=== PATIENT | female | born 1985 | race American Indian/Alaskan Native ===

== ENCOUNTER 2018-12-27 17:30 | Emergency (ER) | payer SELFPAY ==
--- NOTE | 2018-12-27 18:50 | Emergency Department Report ---
Blank Doc - Documentation Documentation: 33-year-old female that presents dizziness and chronic lower back pain with ra diation to legs. Denies any trauma. This initial assessment/diagnostic orders/clinical plan/treatment(s) is/are subject to change based on patient's health status, clinical progression and re-assessment by fellow clinical providers in the ED. Further treatment and workup at subsequent clinical providers discretion. Patient/guardians urged not to elope from the ED as their condition may be serious if not clinically assessed and managed. Initial orders include: 1- Patient sent to [facility] for further evaluation and treatment 2- labs 3- UA
[2018-12-27 18:53] VITALS: BP 142/91
[2018-12-27 19:19] LABS: Basophils # (Auto) 0.1 K/mm3 (0.0-0.1); Basophils % (Auto) 0.8 % (0.0-1.8); Eosinophils # (Auto) 0.1 K/mm3 (0.0-0.4); Eosinophils % (Auto) 1.1 % (0.0-4.3); Lymphocytes # (Auto) 3.3 K/mm3 (1.2-5.4); Lymphocytes % (Auto) 26.9 % (13.4-35.0); Mean Corpuscular HGB Conc 30 % (30-34); Mean Corpuscular Volume 72 fl (79-97); Monocytes # (Auto) 0.7 K/mm3 (0.0-0.8); Monocytes % (Auto) 5.8 % (0.0-7.3); Platelet Count 423 K/mm3 (140-440); Red Blood Count 5.23 M/mm3 (3.65-5.03); Red Cell Distribution Width 17.2 % (13.2-15.2)
[2018-12-27 19:23] LABS: Hematocrit 37.7 % (30.3-42.9); Hemoglobin 11.5 gm/dl (10.1-14.3)
[2018-12-27 19:34] LABS: BUN/Creatinine Ratio 14; Blood Urea Nitrogen 7 mg/dL (7-17); Calcium 9.4 mg/dL (8.4-10.2); Hemolysis Index 3
[2018-12-27] MEDS ORDERED: KETOROLAC 30 MG/1 ML INJ IM ONE (21:12)
--- NOTE | 2018-12-27 21:58 | Emergency Department Report ---
ED Back Pain/Injury HPI - General Chief Complaint: Back Pain/Injury Stated Complaint: LOWER BACK PAIN/DIZZY/LEG PAIN Time Seen by Provider: 12/27/18 18:48 Source: patient Limitations: No Limitations - History of Present Illness Initial Comments: Ms. Hurd is s 33 y/o aaf with hx of htn, DMII, obesity , who presents for left low back pain radiating to bilat legs x 3 days. pt denies fall injury or trauma. Thre is no fever or chills, no n/v no numbness or tingling , no loss of bowel or bladder function, pain is described as 4/10 aching ,burning. pain is relieved by nothing, pain is exacerbated by bending reaching . MD Complaint: back pain Onset/Timin -: days(s) Similar Symptoms Previously: Yes Place: home Radiation: left leg, right leg Severity: moderate Severity scale (0 -10): 5 Quality: aching Consistency: constant Improves With: none Worsens With: none Context: while lifting, turning/twisting, bending Associated Symptoms: denies: numbness, difficulty urinating, incontinence, fever/chills - Related Data Previous Rx's Medication Instructions Recorded Last Taken Type Cyclobenzaprine [Flexeril] 10 mg PO TID PRN #30 tablet 12/27/18 Unknown Rx Menthol/Camphor [[place] 1 applicatio TP BID PRN 7 Days #1 12/27/18 Unknown Rx Ointment] tube Naproxen 500 mg PO BID PRN #30 tablet 12/27/[address] [facility]/M-Cryst 100 mg PO BID 7 Days #14 capsule 12/27/18 Unknown Rx [Macrobid CAP] Allergies Allergy/AdvReac Type Severity Reaction Status Date / Time lisinopril Allergy Swelling Verified 12/27/18 18:49 ED Review of Systems ROS: Stated complaint: LOWER BACK PAIN/DIZZY/LEG PAIN Other details as noted in HPI Constitutional: denies: chills, fever Eyes: denies: eye pain, eye discharge, vision change ENT: denies: ear pain, throat pain Respiratory: denies: cough, shortness of breath, wheezing Cardiovascular: denies: chest pain, palpitations Endocrine: no symptoms reported Gastrointestinal: denies: abdominal pain, nausea, diarrhea Genitourinary: denies: urgency, dysuria, discharge Musculoskeletal: back pain, arthralgia, myalgia Skin: denies: rash, lesions Neurological: denies: headache, weakness, paresthesias Psychiatric: denies: anxiety, depression Hematological/Lymphatic: denies: easy bleeding, easy bruising ED Past Medical Hx - Past Medical History Hx Hypertension: Yes Hx Diabetes: Yes - Surgical History Additional Surgical History: uterus repair - Social History Smoking Status: Never Smoker Substance Use Type: None - Medications Home Medications: Home Medications Medication Instructions Recorded Confirmed Last Taken Type Cyclobenzaprine [Flexeril] 10 mg PO TID PRN #30 tablet 12/27/18 Unknown Rx Menthol/Camphor [[place] 1 applicatio TP BID PRN 7 Days #1 12/27/18 Unknown Rx Ointment] tube Naproxen 500 mg PO BID PRN #30 tablet 12/27/[address] [facility]/M-Cryst 100 mg PO BID 7 Days #14 capsule 12/27/18 Unknown Rx [Macrobid CAP] ED Physical Exam - General Limitations: No Limitations General appearance: alert, in no apparent distress - Head Head exam: Present: atraumatic, normocephalic - Eye Eye exam: Present: normal appearance, EOMI Pupils: Present: normal accommodation - ENT ENT exam: Present: mucous membranes moist - Neck Neck exam: Present: normal inspection, meningismus, full ROM. Absent: tenderness, lymphadenopathy, thyromegaly - Respiratory Respiratory exam: Present: normal lung sounds bilaterally. Absent: respiratory distress, wheezes, stridor, chest wall tenderness - Cardiovascular Cardiovascular Exam: Present: regular rate, normal rhythm, irregular rhythm, normal heart sounds. Absent: systolic murmur, diastolic murmur, rubs, gallop - GI/Abdominal GI/Abdominal exam: Present: soft, normal bowel sounds. Absent: distended, tenderness, guarding, bruit, hernia - Rectal Rectal exam: Present: deferred - External exam: Present: bleeding - Extremities Exam Extremities exam: Present: normal inspection, full ROM, normal capillary refill, joint swelling. Absent: tenderness - Back Exam Back exam: Present: normal inspection, full ROM, tenderness (LL back muscle tenderness to deep palpation no posterior vertebral point tendernes.), muscle spasm, paraspinal tenderness (mild paraspinus muscle tenderness to deep palpation.). Absent: CVA tenderness (R), CVA tenderness (L), vertebral tenderness, rash noted - Expanded Back Exam Expanded Back exam: Absent: saddle anesthesia Back exam: Negative Straight Leg Raising: Left, Right - Neurological Exam Neurological exam: Present: alert, oriented X3, CN II-XII intact, normal gait, reflexes normal. Absent: motor sensory deficit - Expanded Neurological Exam Expanded Patient oriented to: Present: person, place, time Speech: Present: fluid speech Cranial nerves: EOM's Intact: Normal, Gag Reflex: Normal, Tongue Deviation: Normal, Nystagmus: Normal, Facial Sensation: Normal Upper motor neuron: [place] Neglect: Normal, Pronator Drift: Normal Motor strength exam: RUE: 5, LUE: 5, RLE: 5, LLE: 5 Best Eye Response ([place]): (4) open spontaneously Best Motor Response ([place]): (6) obeys commands Best Verbal Response ([place]): (5) oriented [place] Total: 15 ED Course Vital Signs 12/27/18 18:49 Temperature 98.1 F Pulse Rate 97 H Respiratory 18 Rate Blood Pressure 142/91 O2 Sat by Pulse 95 Oximetry ED Medical Decision Making - Lab Data Result diagrams: 12/27/18 18:59 12/27/18 18:59 Labs 12/27/18 12/27/18 12/27/18 18:59 18:59 18:59 WBC 12.3 H RBC 5.23 H Hgb 11.5 Hct 37.7 MCV 72 L MCH 22 L MCHC 30 RDW 17.2 H Plt Count 423 Lymph % (Auto) 26.9 [place] % (Auto) 5.8 Eos % (Auto) 1.1 Baso % (Auto) 0.8 Lymph # 3.3 [facility] [place] # 0.7 Eos # 0.1 Baso # 0.1 Seg Neutrophils % 65.4 Seg Neutrophils # 8.0 H Sodium 138 Potassium 4.3 Chloride 100.4 Carbon Dioxide 27 Anion Gap 15 BUN 7 Creatinine 0.5 L Estimated GFR > 60 BUN/Creatinine Ratio 14 Glucose 195 H POC Glucose Calcium 9.4 HCG, Qual Negative Urine Color Urine Turbidity Urine pH Ur Specific [place] Urine Protein Urine Glucose (UA) Urine Ketones Urine Blood Urine Nitrite Urine Bilirubin Urine Urobilinogen Ur Leukocyte Esterase Urine WBC (Auto) Urine RBC (Auto) U Epithel Cells (Auto) Urine Bacteria (Auto) Urine Mucus 12/27/18 12/27/18 19:06 Unknown WBC RBC Hgb Hct MCV MCH MCHC RDW Plt Count Lymph % (Auto) [facility] % (Auto) Eos % (Auto) Baso % (Auto) Lymph # [facility] # Eos # Baso # Seg Neutrophils % Seg Neutrophils # Sodium Potassium Chloride Carbon Dioxide Anion Gap BUN Creatinine Estimated GFR BUN/Creatinine Ratio Glucose POC Glucose 178 H Calcium HCG, Qual Urine Color Yellow Urine Turbidity Slightly-cloudy Urine pH 5.0 Ur Specific [place] 1.017 Urine Protein <15 mg/dl Urine Glucose (UA) 50 Urine Ketones Neg Urine Blood Neg Urine Nitrite Neg Urine Bilirubin Neg Urine Urobilinogen < 2.0 Ur Leukocyte Esterase Tr Urine WBC (Auto) 1.0 Urine RBC (Auto) 1.0 U Epithel Cells (Auto) 8.0 Urine Bacteria (Auto) 1+ Urine Mucus Few - Medical Decision Making This is a low back strain, ua: tr lue, wbc, bacteria, no posterior vertebral point tenderness no swelling no numbness or tingling , no loss or decrease in bowel or bladder function, pt is ambualtory with steady gait at this time. 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 pt verbalized agreement and understanding of discharge plan. Critical care attestation.: If time is entered above; I have spent that time in minutes in the direct care of this critically ill patient, excluding procedure time. ED Disposition Clinical Impression: Low back strain Qualifiers: Encounter type: initial encounter Qualified Code(s): S39.012A - Strain of muscle, fascia and tendon of lower back, initial encounter Disposition: TO HOME OR SELFCARE Is pt being admited?: No Does the pt Need Aspirin: No Condition: Stable Instructions: Muscle Strain (ED), Low Back Strain (ED), Core Strengthening Exercises (GEN) Prescriptions: Cyclobenzaprine [Flexeril] 10 mg PO TID PRN #30 tablet PRN Reason: Muscle Spasm Nitrofurantoin [place]/M-Cryst [Macrobid CAP] 100 mg PO BID 7 Days #14 capsule Naproxen 500 mg PO BID PRN #30 tablet PRN Reason: pain Menthol/Camphor [[place] Ointment] 1 applicatio TP BID PRN 7 Days #1 tube PRN Reason: pain [facility] [Primary Care Provider[facility] - 3-5 Days Forms: Work/School Release Form(ED) Time of Disposition: 22:44
[2018-12-27 22:08] LABS: Bacteria,Urine 1+ /HPF (Negative); Bilirubin,Urine NEG (Negative); Blood,Urine NEG (Negative); Color,Urine Yellow (Yellow); Mucus,Urine FEW /HPF; Protein,Urine <15 mg/dL mg/dL (Negative); Urobilinogen,Urine < 2.0 mg/dL (<2.0)
== END 2018-12-27 23:00 | disposition home or self-care (01) ==
LOC: ED 17:30
DX: S39.012A Strain of muscle, fascia and tendon of lower back, initial encounter (principal); I10 Essential (primary) hypertension; Z88.8 Allergy status to other drugs, medicaments and biological substances; E11.9 Type 2 diabetes mellitus without complications; X50.9XXA Other and unspecified overexertion or strenuous movements or postures, initial encounter; Y93.89 Activity, other specified; Y92.89 Other specified places as the place of occurrence of the external cause; Y99.8 Other external cause status
CPT/HCPCS: 36415; 80048; 81001; 82962; 84703; 85025; 96372; 99283; J1885

== ENCOUNTER 2019-06-09 21:13 | Emergency (ER) | payer MEDICAID ==
[2019-06-09] MEDS ORDERED: SODIUM CHLORIDE 0.9% 1000 ML 1,000 ML IV ONE (21:59)
[2019-06-09] MEDS ORDERED: ONDANSETRON 4 MG/2 ML INJ IV ONE (21:59)
[2019-06-09] MEDS ORDERED: MORPHINE 4 MG/1 ML INJ IV ONE (21:59)
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
[2019-06-09 22:19] LABS: Basophils # (Auto) 0.1 K/mm3 (0.0-0.1); Basophils % (Auto) 0.6 % (0.0-1.8); Eosinophils # (Auto) 0.1 K/mm3 (0.0-0.4); Eosinophils % (Auto) 0.7 % (0.0-4.3); Hematocrit 39.7 % (30.3-42.9); Hemoglobin 12.4 gm/dl (10.1-14.3); Lymphocytes # (Auto) 3.3 K/mm3 (1.2-5.4); Lymphocytes % (Auto) 21.2 % (13.4-35.0); Mean Corpuscular HGB Conc 31 % (30-34); Mean Corpuscular Volume 75 fl (79-97); Monocytes # (Auto) 0.9 K/mm3 (0.0-0.8); Monocytes % (Auto) 5.5 % (0.0-7.3); Platelet Count 389 K/mm3 (140-440); Red Blood Count 5.32 M/mm3 (3.65-5.03); Red Cell Distribution Width 16.7 % (13.2-15.2)
[2019-06-09 22:39] LABS: BUN/Creatinine Ratio 20; Blood Urea Nitrogen 8 mg/dL (7-17); Calcium 9.2 mg/dL (8.4-10.2); Hemolysis Index 147
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
[2019-06-10] MEDS ORDERED: KETOROLAC 30 MG/1 ML INJ IV ONE (00:39)
[2019-06-10] MEDS ORDERED: KETOROLAC 30 MG/1 ML INJ ONE (00:41)
[2019-06-10 01:13] VITALS: BP 126/76
== END 2019-06-10 01:16 | disposition home or self-care (01) ==
LOC: ED 21:13
DX: S13.4XXA Sprain of ligaments of cervical spine, initial encounter (principal); S86.911A Strain of unspecified muscle(s) and tendon(s) at lower leg level, right leg, initial encounter; S39.012A Strain of muscle, fascia and tendon of lower back, initial encounter; S20.219A Contusion of unspecified front wall of thorax, initial encounter; S30.1XXA Contusion of abdominal wall, initial encounter; E66.9 Obesity, unspecified; E11.9 Type 2 diabetes mellitus without complications; I10 Essential (primary) hypertension; Z88.8 Allergy status to other drugs, medicaments and biological substances; Z79.899 Other long term (current) drug therapy; Z68.44 Body mass index [BMI] 60.0-69.9, adult; Z98.890 Other specified postprocedural states; V49.49XA Driver injured in collision with other motor vehicles in traffic accident, initial encounter; Y92.410 Unspecified street and highway as the place of occurrence of the external cause; Y93.89 Activity, other specified; Y99.8 Other external cause status
CPT/HCPCS: 36415; 71260; 72100; 72125; 73562; 74177; 80048; 84703; 85025; 96374; 96375; 99285; J1885; J2270; J2405; J7030; Q9967

== ENCOUNTER 2020-10-15 08:56 | Emergency (ER) | payer MEDICAID ==
[2020-10-15 10:06] VITALS: BP 139/96
--- NOTE | 2020-10-15 12:04 | Emergency Department Report ---
ED ENT HPI - General Chief complaint: Dental/Oral Stated complaint: MOUTH, EAR, HEAD PAIN Time Seen by Provider: 10/15/20 11:57 Source: patient Mode of arrival: Ambulatory Limitations: No Limitations - History of Present Illness Initial comments: Patient is a 35-year-old female presents emergency room with complaints of left lower dental pain that began 6 days ago. She states that she saw dentist approximately a year ago and had a tooth extraction at that time. She denies any fever, nausea, vomiting, diarrhea, facial swelling, difficulty swallowing. Past medical history of hypertension, diabetes, gastric sleeve, uses 2 L of home oxygen. She has an allergy to lisinopril. - Related Data Previous Rx's Medication Instructions Recorded Last Taken Type Cyclobenzaprine [Flexeril] 10 mg PO TID PRN #30 tablet 12/27/18 Unknown Rx Menthol/Camphor [Ingomar [place] 1 applicatio TP BID PRN 7 Days #1 12/27/18 Unknown Rx Ointment] tube Naproxen 500 mg PO BID PRN #30 tablet 12/27/18 Unknown Rx Nitrofurantoin Dickens/M-Cryst 100 mg PO BID 7 Days #14 capsule 12/27/18 Unknown Rx [Macrobid CAP] Cyclobenzaprine [Flexeril] 10 mg PO QHS PRN #10 tablet 06/10/19 Unknown Rx Naproxen 500 mg PO Q12H PRN #12 tablet 06/10/19 Unknown Rx Acetaminophen [Tylenol] 650 mg PO Q8HR PRN #30 capsule 10/15/20 Unknown Rx Chlorhexidine Mouthwash [Peridex] 15 ml MM BID #1 bottle 10/15/20 Unknown Rx Penicillin Vk [Veetids TAB] 500 mg PO QID 7 Days #56 tablet 10/15/20 Unknown Rx Allergies Allergy/AdvReac Type Severity Reaction Status Date / Time lisinopril Allergy Swelling Verified 10/15/20 10:07 ED Dental HPI - General Chief complaint: Dental/Oral Stated complaint: MOUTH, EAR, HEAD PAIN Time Seen by Provider: 10/15/20 11:57 Source: patient Mode of arrival: Ambulatory Limitations: No Limitations - Related Data Previous Rx's Medication Instructions Recorded Last Taken Type Cyclobenzaprine [Flexeril] 10 mg PO TID PRN #30 tablet 12/27/18 Unknown Rx Menthol/Camphor [Ingomar [place] 1 applicatio TP BID PRN 7 Days #1 12/27/18 Unknown Rx Ointment] tube Naproxen 500 mg PO BID PRN #30 tablet 12/27/18 Unknown Rx Nitrofurantoin Dickens/M-Cryst 100 mg PO BID 7 Days #14 capsule 12/27/18 Unknown Rx [Macrobid CAP] Cyclobenzaprine [Flexeril] 10 mg PO QHS PRN #10 tablet 06/10/19 Unknown Rx Naproxen 500 mg PO Q12H PRN #12 tablet 06/10/19 Unknown Rx Acetaminophen [Tylenol] 650 mg PO Q8HR PRN #30 capsule 10/15/20 Unknown Rx Chlorhexidine Mouthwash [Peridex] 15 ml MM BID #1 bottle 10/15/20 Unknown Rx Penicillin Vk [Veetids TAB] 500 mg PO QID 7 Days #56 tablet 10/15/20 Unknown Rx Allergies Allergy/AdvReac Type Severity Reaction Status Date / Time lisinopril Allergy Swelling Verified 10/15/20 10:07 ED Review of Systems ROS: Stated complaint: MOUTH, EAR, HEAD PAIN Other details as noted in HPI Comment: All other systems reviewed and negative ED Past Medical Hx - Past Medical History Hx Hypertension: Yes Hx Diabetes: Yes Additional medical history: morbid obesity - Surgical History Additional Surgical History: uterus repair GASTRIC SLEEVE JUNE 10 - Social History Smoking Status: Never Smoker Substance Use Type: None - Medications Home Medications: Home Medications Medication Instructions Recorded Confirmed Last Taken Type Cyclobenzaprine [Flexeril] 10 mg PO TID PRN #30 tablet 12/27/18 Unknown Rx Menthol/Camphor [Ingomar [place] 1 applicatio TP BID PRN 7 Days #1 12/27/18 Unknown Rx Ointment] tube Naproxen 500 mg PO BID PRN #30 tablet 12/27/18 Unknown Rx Nitrofurantoin Dickens/M-Cryst 100 mg PO BID 7 Days #14 capsule 12/27/18 Unknown Rx [Macrobid CAP] Cyclobenzaprine [Flexeril] 10 mg PO QHS PRN #10 tablet 06/10/19 Unknown Rx Naproxen 500 mg PO Q12H PRN #12 tablet 06/10/19 Unknown Rx Acetaminophen [Tylenol] 650 mg PO Q8HR PRN #30 capsule 10/15/20 Unknown Rx Chlorhexidine Mouthwash [Peridex] 15 ml MM BID #1 bottle 10/15/20 Unknown Rx Penicillin Vk [Veetids TAB] 500 mg PO QID 7 Days #56 tablet 10/15/20 Unknown Rx ED Physical Exam - General Limitations: No Limitations General appearance: alert, in no apparent distress - Head Head exam: Present: atraumatic, normocephalic - Eye Eye exam: Present: normal appearance - ENT ENT exam: Present: mucous membranes moist, other (there is a cracked tooth with a small hole present to the left lower tooth, no induration of the gumline, no facial edema, uvula is midline, no uvular edema or deviation, no trismus, no tongue elevation, no muffled voice, no submandibular edema ) - Respiratory Respiratory exam: Absent: respiratory distress, accessory muscle use - Neurological Exam Neurological exam: Present: alert, oriented X3 - Psychiatric Psychiatric exam: Present: normal affect, normal mood - Skin Skin exam: Present: warm, dry, intact ED Course Vital Signs 10/15/20 10:02 Temperature 98.5 F Pulse Rate 93 H Respiratory 20 Rate Blood Pressure 139/96 O2 Sat by Pulse 100 Oximetry ED Medical Decision Making - Medical Decision Making Patient is a 35-year-old female presents emergency room with complaints of left lower dental pain that began 6 days ago. She states that she saw dentist approximately a year ago and had a tooth extraction at that time. She denies any fever, nausea, vomiting, diarrhea, facial swelling, difficulty swallowing. Past medical history of hypertension, diabetes, gastric sleeve, uses 2 L of home oxygen. She has an allergy to lisinopril. Vitals are stable. On exam:there is a cracked tooth with a small hole present to the left lower tooth, no induration of the gumline, no facial edema, uvula is midline, no uvular edema or deviation, no trismus, no tongue elevation, no muffled voice, no submandibular edema. Examination appears consistent with dental carry, no signs of dental abscess, facial cellulitis, facial abscess or Rojelio's at this time. Patient given prescription for medications. Discussed the importance of outpatient dental follow-up. Advised patient Please take medication as prescribed. Please follow-up with a dentist. Return to emergency room for any new or worsening symptoms. Critical care attestation.: If time is entered above; I have spent that time in minutes in the direct care of this critically ill patient, excluding procedure time. ED Disposition Clinical Impression: Cracked tooth, Dental caries Disposition: HOME / SELF CARE / HOMELESS Is pt being admited?: No Does the pt Need Aspirin: No Condition: Stable Additional Instructions: Please take medication as prescribed. Please follow-up with a dentist. Return to emergency room for any new or worsening symptoms. Prescriptions: Chlorhexidine Mouthwash [Peridex] 15 ml MM BID #1 bottle Acetaminophen [Tylenol] 650 mg PO Q8HR PRN #30 capsule PRN Reason: pain Penicillin Vk [Veetids TAB] 500 mg PO QID 7 Days #56 tablet Referrals: [facility] [Outside] - 3-5 Days [facility] [Outside] - 3-5 Days Time of Disposition: 12:03 Print Language: CROATIAN
== END 2020-10-15 12:33 | disposition home or self-care (01) ==
LOC: ED 08:56
DX: K03.81 Cracked tooth (principal); K02.9 Dental caries, unspecified; E11.8 Type 2 diabetes mellitus with unspecified complications; I10 Essential (primary) hypertension; Z88.8 Allergy status to other drugs, medicaments and biological substances
CPT/HCPCS: 99281

== ENCOUNTER 2020-12-17 15:24 | Emergency (ER) | payer MEDICAID ==
--- NOTE | 2020-12-17 15:39 | Event Note ---
ED Screening Note ED Screening Note: 35 yo morbidly obese female comes in with l calf pain no hx dvt denies sob or cp denies med hx denies home meds sedentary/ obese lle swollen on exam no trauma dp plus 2 HR 97 This initial assessment/diagnostic orders/clinical plan/treatment(s) is/are subject to change based on patients health status, clinical progression and re- assessment by fellow clinical providers in the ED. Further treatment and workup at subsequent clinical providers discretion. Patient/guardian urged not to elope from the ED as their condition may be serious if not clinically assessed and managed. Initial orders include: ro dvt
[2020-12-17] MEDS ORDERED: IBUPROFEN 800 MG TAB PO ONE (15:59)
[2020-12-17 16:23] VITALS: BP 130/80
--- NOTE | 2020-12-17 16:32 | Vascular Lab Report ---
DUPLEX DOPPLER LOWER EXTREMITY VEINS, LEFT INDICATION / CLINICAL INFORMATION: l calf pain and swelling. TECHNIQUE: Duplex doppler imaging was performed through the veins of the left lower extremity using venous compr ession and other maneuvers. COMPARISON: None available. FINDINGS: LEFT COMMON FEMORAL VEIN: Negative. LEFT FEMORAL VEIN: Negative. LEFT POPLITEAL VEIN: Negative. LEFT CALF VEINS: Negative. ADDITIONAL FINDINGS: None. IMPRESSION: 1. No sonographic evidence for DVT in the left lower extremity. Signer Name: Fidel Garnett MD Signed: 12/17/2020 4:27 PM Workstation Name: [id number]
--- NOTE | 2020-12-17 17:49 | Emergency Department Report ---
ED General Adult HPI - General Chief complaint: Pain General Stated complaint: LEG AND FOOT PAIN Time Seen by Provider: 12/17/20 16:09 Source: patient Mode of arrival: Wheelchair Limitations: No Limitations - History of Present Illness Initial comments: Patient is a 35-year-old female presents emergency room complaints of left leg pain for a few days. She states that she has been icing it without much relief. She denies any fall, injury, trauma. She denies any redness or skin changes or fever. She denies any ulcerations or blisters. She has a past medical history of diabetes, hypertension, gastric sleeve, hypoxia on home oxygen seeing pulmonology. Allergy to lisinopril. Severity scale (0 -10): 8 - Related Data Previous Rx's Medication Instructions Recorded Last Taken Type Meloxicam [Mobic] 7.5 mg PO QDAY #10 tablet 12/17/20 Unknown Rx methOCARBAMOL [Robaxin TAB] 500 mg PO BID PRN #14 tab 12/17/20 Unknown Rx Allergies Allergy/AdvReac Type Severity Reaction Status Date / Time lisinopril Allergy Swelling Verified 10/15/20 10:07 ED Review of Systems ROS: Stated complaint: LEG AND FOOT PAIN Other details as noted in HPI Comment: All other systems reviewed and negative ED Past Medical Hx - Past Medical History Previous Medical History?: Yes Hx Hypertension: Yes Hx Diabetes: Yes Additional medical history: morbid obesity - Surgical History Past Surgical History?: Yes Additional Surgical History: uterus repair GASTRIC SLEEVE JUNE 10 - Social History Smoking Status: Never Smoker Substance Use Type: None - Medications Home Medications: Home Medications Medication Instructions Recorded Confirmed Last Taken Type Meloxicam [Mobic] 7.5 mg PO QDAY #10 tablet 12/17/20 Unknown Rx methOCARBAMOL [Robaxin TAB] 500 mg PO BID PRN #14 tab 12/17/20 Unknown Rx ED Physical Exam - General Limitations: No Limitations General appearance: alert, in no apparent distress - Head Head exam: Present: atraumatic, normocephalic - Eye Eye exam: Present: normal appearance - ENT ENT exam: Present: mucous membranes moist - Extremities Exam Extremities exam: Present: other (morbid obese, enlarged legs bilaterally, there is ttp overlying the left achiles tendon, FROM of the LLE, no deformity, no skin changes, no erythema, no increased warmth, no calf ttp, neurovascularly intact, brisk cap refill) - Neurological Exam Neurological exam: Present: alert, oriented X3 - Psychiatric Psychiatric exam: Present: normal affect, normal mood - Skin Skin exam: Present: warm, dry, intact ED Course Vital Signs 12/17/20 12/17/20 12/17/20 15:33 16:19 16:20 Temperature 98.2 F 98.0 F Pulse Rate 97 H 95 H Respiratory 16 20 18 Rate Blood Pressure 130/80 Blood Pressure 128/86 [Left] O2 Sat by Pulse 98 99 Oximetry ED Medical Decision Making - Radiology Data Radiology results: report reviewed Ordering Physician: RYAN JONES Date of Service: 12/17/20 Procedure(s): VL venous duplex LE LT Accession Number(s): [id number] cc: RYAN JONES DUPLEX DOPPLER LOWER EXTREMITY VEINS, LEFT INDICATION / CLINICAL INFORMATION: l calf pain and swelling. TECHNIQUE: Duplex doppler imaging was performed through the veins of the left lower extremity using venous compression and other maneuvers. COMPARISON: None available. FINDINGS: LEFT COMMON FEMORAL VEIN: Negative. LEFT FEMORAL VEIN: Negative. LEFT POPLITEAL VEIN: Negative. LEFT CALF VEINS: Negative. ADDITIONAL FINDINGS: None. IMPRESSION: 1. No sonographic evidence for DVT in the left lower extremity. Signer Name: Rufina Garnett MD Signed: 12/17/2020 4:27 PM Workstation Name: [id number] Transcribed By: DANN Dictated By: RUFINA GARNETT MD Electronically Authenticated By: RUFINA GARNETT MD Signed Date/Time: 12/17/201626 DD/ 26 TD/TT: - Medical Decision Making Patient is a 35-year-old female presents emergency room complaints of left leg pain for a few days. She states that she has been icing it without much relief. She denies any fall, injury, trauma. She denies any redness or skin changes or fever. She denies any ulcerations or blisters. She has a past medical history of diabetes, hypertension, gastric sleeve, hypoxia on home oxygen seeing pulmonology. Allergy to lisinopril. Vitals are stable. On exam:morbid obese, enlarged legs bilaterally, there is ttp overlying the left achiles tendon, FROM of the LLE, no deformity, no skin changes, no erythema, no increased warmth, no calf ttp, neurovascularly intact, brisk cap refill. Ultrasound ordered prior to my examination and shows: 1. No sonographic evidence for DVT in the left lower extremity. Patient has had no acute trauma. Do not suspect fracture or dislocation. Symptoms appear most consistent with Achilles tendinitis. Patient given prescription for medication and discussed the importance of outpatient follow-up. Advised patient Please take medication as prescribed. Follow-up with orthopedic doctor. Return to emergency room for any new or worsening symptoms. Critical care attestation.: If time is entered above; I have spent that time in minutes in the direct care of this critically ill patient, excluding procedure time. ED Disposition Clinical Impression: Left leg pain Disposition: 01 HOME / SELF CARE / HOMELESS Is pt being admited?: No Does the pt Need Aspirin: No Condition: Stable Instructions: Achilles Tendinitis Additional Instructions: Please take medication as prescribed. Follow-up with orthopedic doctor. Return to emergency room for any new or worsening symptoms. Prescriptions: Meloxicam [Mobic] 7.5 mg PO QDAY #10 tablet methOCARBAMOL [Robaxin TAB] 500 mg PO BID PRN #14 tab PRN Reason: muscle spasm/pain Referrals: JONEL STEINBERG MD [Staff Physician] - 3-5 Days [facility] [Provider Group] - 3-5 Days Time of Disposition: 17:49 Print Language: CROATIAN
== END 2020-12-17 18:05 | disposition home or self-care (01) ==
LOC: ED 15:24
DX: M79.605 Pain in left leg (principal); I10 Essential (primary) hypertension; E11.8 Type 2 diabetes mellitus with unspecified complications; Z88.8 Allergy status to other drugs, medicaments and biological substances
CPT/HCPCS: 99283

== ENCOUNTER 2021-08-13 16:12 | Emergency (ER) | payer MEDICAID ==
[2021-08-13] MEDS ORDERED: predniSONE 20 MG TAB PO ONE (18:37)
--- NOTE | 2021-08-13 19:02 | XRay Report ---
CHEST 2 VIEWS INDICATION / CLINICAL INFORMATION: COUGH. FINDINGS: SUPPORT DEVICES: None. HEART / MEDIASTINUM: No significant abnormality. LUNGS / PLEURA: No significant pulmonary or pleural abnormality. No pneumothorax. ADDITIONAL FINDINGS: No significant additional findings. IMPRESSION: 1. No acute findings. Signer Name: Bo Lugo MD Signed: 08/13/2021 6:58 PM Workstation Name: [id number]
--- NOTE | 2021-08-13 20:14 | Emergency Department Report ---
- General Chief Complaint: Dyspnea/Respdistress Stated Complaint: COVID+ EDI Source: patient Mode of arrival: Ambulatory Limitations: No Limitations - History of Present Illness Initial Comments: Patient is a 35-year-old -[place] female with a history morbid obesity, hypertension and ynk-mfisccb-bbcywgvvl diabetes who presents to the ED with complaint of acute onset persistent nasal and sinus congestion, persistent dry cough, diffuse body aches and pains and sinus pressure for the last 1 week, worse in the last 3 days. Patient states that she tested positive for COVID-19 viral infection about 2 days ago and has been taking [id number] medications for pain. Patient states that in the last 12 hours, she has been feeling generalized weakness, persistent dry cough, nasal and sinus congestion and mild shortness of breath and decided come to the ED for evaluation. Patient denies dizziness, syncope, chest pain, nausea and vomiting, diarrhea, dysuria, urinary frequency and urgency, change in vision, seizures, hemoptysis, hematemesis or sore throat. MD Complaint: cough, sore throat, rhinorrhea, nasal congestion, sinus pain -: week(s) (1) Severity: moderate Severity scale (0 -10): 6 Quality: dull, aching Consistency: intermittent Improves With: nothing Worsens With: nothing Context: sick contacts (tested positive for Covid-19 infection 2 days ago) Associated Symptoms: denies other symptoms, rhinorrhea, nasal congestion, cough. denies: fever, diaphoresis, headache, sore throat, stiff neck, chest pain, shortness of breath, abdominal pain, nausea, vomiting, diarrhea, rash, right sweats, weight loss, hoarseness, ear pain Treatments Prior to Arrival: "cold medicine" - Related Data Previous Rx's Medication Instructions Recorded Last Taken Type Meloxicam [Mobic] 7.5 mg PO QDAY #10 tablet 12/17/20 Unknown Rx methOCARBAMOL [Robaxin TAB] 500 mg PO BID PRN #14 tab 12/17/20 Unknown Rx Albuterol Sulfate [Proventil Hfa] 1 - 2 puff IH Q6H PRN #1 inh 08/13/21 Unknown Rx Ascorbic Acid [Vitamin C] 1,000 mg PO BID #60 tab 08/13/21 Unknown Rx Azithromycin [Zithromax Z-GIOVANA] 250 mg PO DAILY #6 tab 08/13/21 Unknown Rx Benzonatate [Tessalon Perles] 100 mg PO Q8HR #30 cap 08/13/21 Unknown Rx Cetirizine HCl [Zyrtec 10mg tab] 10 mg PO DAILY #30 tab 08/13/21 Unknown Rx Zinc Acetate [Galzin 50mg CAP] 50 mg PO DAILY #30 cap 08/13/21 Unknown Rx methylPREDNISolone [Medrol 4MG 4 mg PO DAILY #21 tab 08/13/21 Unknown Rx DOSEPAK (21 tabs)] Allergies Allergy/AdvReac Type Severity Reaction Status Date / Time lisinopril Allergy Swelling Verified 10/15/20 10:07 ED Review of Systems ROS: Stated complaint: COVID+ EDI Other details as noted in HPI Constitutional: denies: chills, fever Eyes: denies: eye pain, eye discharge, vision change ENT: congestion. denies: ear pain, throat pain Respiratory: cough, shortness of breath. denies: wheezing Cardiovascular: denies: chest pain, palpitations Endocrine: no symptoms reported Gastrointestinal: nausea. denies: abdominal pain, vomiting, diarrhea Genitourinary: denies: urgency, dysuria, discharge Musculoskeletal: arthralgia, myalgia. denies: back pain, joint swelling Skin: denies: rash, lesions Neurological: headache. 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 SLEEVE JUNE 10 - Social History Smoking Status: Never Smoker Substance Use Type: None - Medications Home Medications: Home Medications Medication Instructions Recorded Confirmed Last Taken Type Meloxicam [Mobic] 7.5 mg PO QDAY #10 tablet 12/17/20 Unknown Rx methOCARBAMOL [Robaxin TAB] 500 mg PO BID PRN #14 tab 12/17/20 Unknown Rx Albuterol Sulfate [Proventil Hfa] 1 - 2 puff IH Q6H PRN #1 inh 08/13/21 Unknown Rx Ascorbic Acid [Vitamin C] 1,000 mg PO BID #60 tab 08/13/21 Unknown Rx Azithromycin [Zithromax Z-GIOVANA] 250 mg PO DAILY #6 tab 08/13/21 Unknown Rx Benzonatate [Tessalon Perles] 100 mg PO Q8HR #30 cap 08/13/21 Unknown Rx Cetirizine HCl [Zyrtec 10mg tab] 10 mg PO DAILY #30 tab 08/13/21 Unknown Rx Zinc Acetate [Galzin 50mg CAP] 50 mg PO DAILY #30 cap 08/13/21 Unknown Rx methylPREDNISolone [Medrol 4MG 4 mg PO DAILY #21 tab 08/13/21 Unknown Rx DOSEPAK (21 tabs)] ED Physical Exam - General Limitations: No Limitations General appearance: alert, in no apparent distress - Head Head exam: Present: atraumatic, normocephalic, normal inspection - Eye Eye exam: Present: normal appearance, PERRL, EOMI Pupils: Present: normal accommodation - ENT ENT exam: Present: normal orophraynx, mucous membranes moist, TM's normal bilaterally, normal external ear exam, other (Grossly congested nasal passages; palpable frontal sinus tenderness) - Neck Neck exam: Present: normal inspection, full ROM. Absent: tenderness - Respiratory Respiratory exam: Present: normal lung sounds bilaterally. Absent: respiratory distress, wheezes, rales, rhonchi, chest wall tenderness, accessory muscle use - Cardiovascular Cardiovascular Exam: Present: normal rhythm, tachycardia, normal heart sounds. Absent: systolic murmur, diastolic murmur, rubs, gallop - GI/Abdominal GI/Abdominal exam: Present: soft, normal bowel sounds. Absent: tenderness, hyperactive bowel sounds, mass - Extremities Exam Extremities exam: Present: normal inspection, full ROM, normal capillary refill - Back Exam Back exam: Present: normal inspection, full ROM. Absent: tenderness, CVA tenderness (R), CVA tenderness (L), muscle spasm, paraspinal tenderness, vertebral tenderness - Neurological Exam Neurological exam: Present: alert, oriented X3, CN II-XII intact, normal gait, reflexes normal - Psychiatric Psychiatric exam: Present: normal affect, normal mood - Skin Skin exam: Present: warm, dry, intact, normal color. Absent: rash ED Course Vital Signs 08/13/21 16:54 Temperature 98.0 F Pulse Rate 111 H Respiratory 20 Rate Blood Pressure 151/94 O2 Sat by Pulse 95 Oximetry ED Medical Decision Making - Medical Decision Making This is a 35-year-old -[place] female with a history morbid obesity, hypertension and vzb-cksmoer-rqqitbqrl diabetes who presents to the ED with complaint of acute onset persistent nasal and sinus congestion, persistent dry cough, diffuse body aches and pains and sinus pressure for the last 1 week, worse in the last 3 days. Patient states that she tested positive for COVID-19 viral infection about 2 days ago and has been taking cqzw-kcs-[id number] medications for pain. Patient states that in the last 12 hours, she has been feeling generalized weakness, persistent dry cough, nasal and sinus congestion and mild shortness of breath and decided come to the ED for evaluation. In the ED, patient is alert and oriented x3 and is not in any distress but anxious. Patient is tachycardic but afebrile in triage. Chest x-ray showed no acute cardiopulmonary abnormalities or pneumonitis. Patient was treated in the ED with oral prednisone. Patient's oxygen saturation is 95% in room air. Patient was discharged home on medications and advised to follow-up with her primary care physician in 7 to 10 days for reevaluation. Patient was also advised to self quarantine at home for 5 days due to her recent diagnosis with COVID-19 viral infection. Patient is advised return to the ED immediately if symptoms get worse. - Differential Diagnosis COVID-19; rhonchi; pneumonia; URI; sinusitis; Critical care attestation.: If time is entered above; I have spent that time in minutes in the direct care of this critically ill patient, excluding procedure time. ED Disposition Clinical Impression: Acute bronchitis due to 2019 novel coronavirus, Upper respiratory tract infection due to COVID-19 virus Disposition: 01 HOME / SELF CARE / HOMELESS Is pt being admited?: No Does the pt Need Aspirin: No Condition: Stable Instructions: Acute Bronchitis (ED), Upper Respiratory Infection, Adult, [id number], Cough, Adult, [id number]-[id number], Acute Bronchitis, Adult, [id number], COVID-19: How to Protect Yourself and Others - CDC, Prevent the Spread of COVID- 19 if You Are Sick - CDC Additional Instructions: Chest x-ray shows no acute cardiopulmonary abnormalities or pneumonitis. Take medications with food, drink plenty of fluids, self quarantine at home for 5 days due to your recent COVID-19 viral infection diagnosis. Follow-up with your primary care physician in 7 to 10 days for reevaluation. Return to the ED immediately if symptoms get worse. Prescriptions: Zinc Acetate [Galzin 50mg CAP] 50 mg PO DAILY #30 cap methylPREDNISolone [Medrol 4MG DOSEPAK (21 tabs)] 4 mg PO DAILY #21 tab Albuterol Sulfate [Proventil Hfa] 1 - 2 puff IH Q6H PRN #1 inh PRN Reason: Shortness Of Breath Benzonatate [Tessalon Perles] 100 mg PO Q8HR #30 cap Ascorbic Acid [Vitamin C] 1,000 mg PO BID #60 tab Azithromycin [Zithromax Z-GIOVANA] 250 mg PO DAILY #6 tab Cetirizine HCl [Zyrtec 10mg tab] 10 mg PO DAILY #30 tab Referrals: [facility] [Provider Group] - 7-10 days Forms: Work/School Release Form(ED) Time of Disposition: 20:25 Print Language: MONTSERRATIAN
[2021-08-13 21:21] VITALS: BP 147/88
== END 2021-08-13 21:22 | disposition home or self-care (01) ==
LOC: ED 16:12
DX: J06.9 Acute upper respiratory infection, unspecified (principal); J20.9 Acute bronchitis, unspecified; I10 Essential (primary) hypertension; E11.9 Type 2 diabetes mellitus without complications; Z20.822 Contact with and (suspected) exposure to COVID-19; Z91.09 Other allergy status, other than to drugs and biological substances; Z79.899 Other long term (current) drug therapy
CPT/HCPCS: 71046; 99283